=== PATIENT | female | born 1960 | race Caucasian/White ===

== ENCOUNTER 2020-01-04 06:45 | Day surgery (SDC) | payer BC ==
[~2020-01-04] VITALS: Ht 157.5 cm; Wt 61.2 kg
[~2020-01-04 06:45] MED LIST: ADVIL200 MG PO; ALLERGY RE50 MCG/ACT; AMITIZA8 MCG PO; CALCIUM500 M2 PO; CARAFATE PO; CEPHALEXIN500 MG PO; LORATADINE10 M1 PO; MULT1 PO; OMEPRAZOLE20 M2 PO
[2020-01-04 09:31] VITALS: BP 126/83
== END 2020-01-04 09:30 | disposition home or self-care (01) | DRG 392 ==
LOC: ORM 06:45
PROVIDERS: ATTEND Surgery
PROC: 0DB48ZX Excision of Esophagogastric Junction, Via Natural or Artificial Opening Endoscopic, Diagnostic (ICD-10-PCS; principal; 2020-01-04)
PROC: 0DB78ZX Excision of Stomach, Pylorus, Via Natural or Artificial Opening Endoscopic, Diagnostic (ICD-10-PCS; 2020-01-04)
PROC: 0DJD8ZZ Inspection of Lower Intestinal Tract, Via Natural or Artificial Opening Endoscopic (ICD-10-PCS; 2020-01-04)
DX: K29.70 Gastritis, unspecified, without bleeding (principal); K31.7 Polyp of stomach and duodenum; D18.03 Hemangioma of intra-abdominal structures; K20.9 Esophagitis, unspecified; Z12.11 Encounter for screening for malignant neoplasm of colon; Z80.0 Family history of malignant neoplasm of digestive organs; Z11.59 Encounter for screening for other viral diseases

== ENCOUNTER 2020-06-04 09:28 | Day surgery (SDC) | payer BC ==
[~2020-06-04] VITALS: Ht 157.5 cm; Wt 59.9 kg
[~2020-06-04 09:28] MED LIST changes: +MULTI VIT PO
[2020-06-04] MEDS ORDERED: PERCOCET 5/325M1 TAB PO (11:59)
[2020-06-04 12:27] VITALS: BP 119/62
== END 2020-06-04 12:44 | disposition home or self-care (01) | DRG 352 ==
LOC: ORM 09:28
PROVIDERS: ATTEND Surgery
PROC: 0YU54JZ Supplement Right Inguinal Region with Synthetic Substitute, Percutaneous Endoscopic Approach (ICD-10-PCS; principal; 2020-06-04)
DX: K40.90 Unilateral inguinal hernia, without obstruction or gangrene, not specified as recurrent (principal); Z20.828 Contact with and (suspected) exposure to other viral communicable diseases
CPT/HCPCS: J0131; J1100